=== PATIENT | female | born 1950 | race Hispanic/Latino ===

== ENCOUNTER 2020-01-10 08:35 | Inpatient (IN) | payer MEDICARE, MEDICAID, SELFPAY ==
[2020-01-10] VITALS (12 sets, daily range): BP systolic 103–160; BP diastolic 82–110; PULSE 92–142; RESP 16–20; TEMP 35.7–36.7; O2SAT 93–100; BMI 31.2
--- NOTE | ~2020-01-10 | CT_ITS ---
EXAMINATION: CT brain wo con DATE: 01/10/2020 09:13 INDICATION: Left-sided weakness and numbness TECHNIQUE: Computed tomography (CT) of the head was performed without intravenous contrast. The dose- length product was 605.33 mGy-cm. Automated exposure control and iterative reconstruction technique w ere employed. COMPARISON: None FINDINGS: No acute intracranial hemorrhage, infarction, mass or mass effect. There are calcifications in the basal ganglia, likely from previous infectious or inflammatory etiologies. No ventriculomegal y or midline shift. There is intracranial atherosclerosis. There are scattered mild periventricular a nd subcortical white matter changes, most likely related to small vessel ischemic disease (microangio deshawn). Paranasal sinuses and mastoids are pneumatized. No depressed skull fractures. IMPRESSION: 1. No acute intracranial abnormality. Reviewed, dictated and finalized at location A.
--- NOTE | ~2020-01-10 | US_ITS ---
EXAMINATION: US carotid duplex BI DATE: 01/11/2020 10:53 INDICATION: Left hemiparesis. TECHNIQUE: Grayscale, color Doppler, and pulsed Doppler images of the cervical carotid arteries were obtained. The degree of vessel stenosis is placed in one of the following categories: normal, <50%, 5 0-69%, >=70% but less than near-occlusion, near-occlusion, or total occlusion. Note that percent sten osis relative to normal distal artery lumen diameter is indirectly measured from velocity measurement s as described by Juan, et al. Radiology 2003; 229:340-346. COMPARISON: None. FINDINGS: RIGHT: The right common carotid artery (CCA) peak systolic velocity (PSV) is 63 cm/s. The right internal car otid artery (ICA) PSV is 47 cm/s. The right ICA end-diastolic velocity (EDV) is 20 cm/s. The right IC A/CCA PSV ratio is 0.7. Grayscale and color Doppler images yield an estimate of <50% diameter reducti on from plaque in the ICA. There is antegrade flow in the right vertebral artery. LEFT: The left CCA PSV is 60 cm/s. The left ICA PSV is 42 cm/s. The left ICA EDV is 11 cm/s. The left ICA/C CA PSV ratio is 0.7. Grayscale and color Doppler images yield an estimate of <50% diameter reduction from plaque in the ICA. There is antegrade flow in the left vertebral artery. IMPRESSION: 1. <50% stenosis in the right internal carotid artery. 2. <50% stenosis in the left internal carotid artery. Reviewed, dictated and finalized at location A.
--- NOTE | ~2020-01-10 | XR_ITS ---
XR chest 1V 01/10/2020 09:15 Indication: Chest pain Procedure: AP view of the chest Comparison: No prior studies for comparison. Findings: Cardiomegaly. No focal air space disease, pulmonary edema, pleural effusion or suspected pn eumothorax. No acute osseous abnormality. Impression: 1: No acute cardiopulmonary disease. Reviewed, dictated and finalized at location A. Impression: 1: No acute cardiopulmonary disease.
--- NOTE | ~2020-01-10 | MR_ITS ---
EXAMINATION: MR brain/brain stem wo con EXAM DATE: 01/11/2020 10:41 INDICATION: Left arm hemiparesis. TECHNIQUE: Magnetic resonance imaging (MRI) of the brain/brain stem obtained without contrast. Jagrutiitt al T1, axial diffusion, gradient echo (T2*), T1, T2, FLAIR sequences obtained. Correlation is made t o head CT from yesterday. FINDINGS: There are no areas of restricted diffusion to suggest acute infarction. There is no acute hemorrhage seen on the T2*, a hemosiderin sensitive sequence. No intraparenchymal brain mass lesion. There is mild periventricular and subcortical T2/FLAIR signal hyperintensity, nonspecific but probab ly related to small vessel ischemic disease (microangiopathy). There are no extra-axial collection s. Flow voids are seen in the cerebral arteries on the T2-weighted sequences consistent with their e xpected patency. The orbits are unremarkable. Soft tissue is unremarkable. IMPRESSION: 1. No acute intracranial findings. 2. Mild microangiopathy. Reviewed, dictated and finalized at location B.
--- NOTE | 2020-01-10 08:47 | ED.NEUROSD ---
HPI - Neuro Symptoms/Deficit General Chief Complaint: Extremity Injury, Upper Stated Complaint: arm numbness Time Seen by Provider: 01/10/20 08:38 Source: patient and customer complaint clerk Mode of arrival: ambulatory Limitations: no limitations History of Present Illness HPI Narrative: Pt is a 69 female who presents to the ED with c/o lt arm numbness/pain that started 2 days ago. She notes that her arm feels heavy and cold. She denies CP or SOB. Pt is non-Egyptian speaking and a family member is translating at bedside. Pt was recently seen by retail pharmacist, Dr. Porras and was told she had leaking. She is unaware if she has a H/O AFIB. Pt takes ASA 325mg daily as her anticoagulation therapy. She has a H/o hypothyroidism and HTN. Pt has a holter monitor on in the ED bed. Onset (ago): day(s) (2) Location: left arm Quality: numb and other (pain) On Anticoagulants: Yes (ASA 325mg) Associated symptoms: denies other symptoms Related Data Home Medications Medication Instructions Recorded Confirmed aspirin 325 mg PO DAILY 01/10/20 01/10/20 levothyroxine 50 mcg PO DAILY 01/10/20 01/10/20 metoprolol succinate 50 mg PO DAILY 01/10/20 01/10/20 Allergies Allergy/AdvReac Type Severity Reaction Status Date / Time No Known Allergies Allergy Unverified 01/10/20 08:47 Review of Systems Review of Systems: All systems reviewed & are unremarkable except as noted in HPI and below Cardiovascular: Cardiovascular: Denies chest pain Respiratory: Respiratory: Denies dyspnea Musculoskeletal: Musculoskeletal: Reports other (lt arm pain) Neurologic: Reports numbness (lt arm) FOR[facility]LY [facility] Past Medical History Medical History (Updated 01/10/20 @ 12:52 by Beto Arreola DO) HTN (hypertension) Hypothyroid Surgical History Surgical History (Updated 01/10/20 @ 09:09 by Fili Bustamante) No significant past surgical history Family History Family History (Updated 01/10/20 @ 12:11 by Teresa Raymundo RN) Other Unknown family medical history Social History Social History (Updated 01/10/20 @ 09:09 by Fili Bustamante) Smoking status: Never smoker Second hand tobacco smoke exposure: No Alcohol intake: never Substance use: never Substance use type: does not use Spiritual care concerns: Yes Agree to blood products: Yes Exam Narrative: Exam Narrative: APPEARANCE: No acute distress, nontoxic, resting in bed HEENT: Normocephalic, atraumatic, OMM, TMs clear bilaterally EYES: PERRL, EOMI NECK: Supple, nontender, full range of motion without pain, no meningismus RESPIRATORY: No respiratory distress, clear to auscultation bilaterally with no rhonchi wheezing or rales CARDIOVASCULAR: Tachycardic and irregular s murmur ABDOMINAL: Soft, nontender, nondistended MUSCULOSKELETAL: Moves all extremities. No clubbing, cyanosis or edema. Bilateral radial pulse 2+ NEURO: A and O ?3, following commands, speech normal, cranial nerves II through XII grossly intact,muscle strength 5 out of 5 bilateral upper and lower extremities SKIN:: Warm, dry. Normal Color PSYCHIATRIC: Normal affect/mood Course Course Emergency Course: Discussed with patient and family results of workup and diagnosis. Discussed need for admission. Patient and family understand and agree to current treatment plan Consultations Consultation #1: Discussed case with Wilda Carter NP for the retail pharmacist. Will look through the office notes to see pt's Hx. Date: 01/10/20 Time: 09:41 Consultation #2: Discussed case Dr. Ulloa with the hospitalist. Accepted admission Date: 01/10/20 Time: 09:58 Consultation #3: Wilda Carter reviewed pt's records and the pt is not on any other anticoagulants besides ASA and requests giving pt Lovenox. Date: 01/10/20 Time: 10:15 Vital Signs Vital signs: Vital Signs Temperature 96.2 F L 01/10/20 08:39 Pulse Rate 142 H 01/10/20 08:39 Respiratory Rate 20 01/10/20 08:39 Blood Pressure 160/110 H 01/10/20 08:39 Pulse Oximetry 96 01/10/20 08:39
--- NOTE | 2020-01-10 08:49 | ECG_ITS ---
Measurements Intervals [place] Rate: 160 P: [place]: 0 QRS: 15 QRSD: 77 T: 10 QT: 253 QTc: 414 Interpretive Statements ATRIAL FIBRILLATION WITH RAPID VENTRICULAR RESPONSE BORDERLINE ST ABNORMALITY- ANTEROLATERAL LEADS BASELINE ARTIFACT- I, II, III, AVR, AVL, AVF, V1 ABNORMAL ECG Electronically Signed On 01-10-2020 9:12:28 CDT by Naresh Myers D.O.
[2020-01-10 09:17] LABS: Basophils Percent Auto 0.3 % (0.2-1.2); Eosinophils Absolute Auto 0.2 K/mm3 (0-0.3); Eosinophils Percent Auto 1.9 % (0-4.4); Hematocrit 46.6 % (37.0-47.0); Hemoglobin 15.5 g/dL (12.0-15.0); Immature Granulocyte Absolute 0.02 K/mm3 (0.00-0.031); Immature Granulocyte Percent A 0.2 % (0-0.5); Lymphocytes Absolute Auto 3.63 K/mm3 (0.9-3.2); Lymphocytes Percent Auto 35.7 % (18.3-44.2); Mean Corpuscular HGB Conc 33.3 g/dl (32-36); Mean Corpuscular Hemoglobin 28.9 pg (26-34); Mean Corpuscular Volume 86.9 fl (80-100); Mean Platelet Volume 9.7 fl (7.4-10.4); Monocytes Absolute Auto 0.9 K/mm3 (0.1-0.6); Monocytes Percent Auto 8.5 % (2.6-8.5); Neutrophils Absolute Auto 5.4 K/mm3 (1.3-6.7); Neutrophils Percent Auto 53.4 % (45.5-73.1); Platelet Count Result 206 k/mm3 (150-375); Red Blood Count 5.36 M/mm3 (4.2-5.4); Red Cell Distribution Width 13.7 % (11.5-14.5); White Blood Count 10.2 K/mm3 (4.5-10.0)
[2020-01-10] MEDS: SODIUM CHLORIDE 0.9% IV 1,000 ML 999 ML IV CONT (09:27)
[2020-01-10 09:30] LABS: Alanine Aminotransferase 40 U/L (4-35); Albumin Level 4.1 g/dL (3.5-5.1); Alkaline Phosphatase 112 U/L (38-126); Aspartate Amino Transferase 46 U/L (14-36); Bilirubin,Total 1.1 mg/dL (0.2-1.3); Blood Urea Nitrogen 19 mg/dL (7-17); Calcium 8.6 mg/dL (8.4-10.2); Carbon Dioxide 25 mmol/L (22-30); Chloride 105 mmol/L (98-107); Estimated CRCL calculation 79 ml/min; Estimated Glomerular Filt Rate > 60; Glucose 113 mg/dL (65-105); Magnesium 1.9 mg/dL (1.6-2.3); Sodium 141 mmol/L (137-145)
[2020-01-10 09:35] LABS: Prothrombin Time 13.2 Seconds (11.1-14.7)
[2020-01-10 09:36] LABS: Partial Thromboplastin Time 26.5 SECONDS (22.3-36.8)
[2020-01-10 09:41] LABS: Troponin I < 0.012 ng/mL (0.000-0.034)
[2020-01-10] MEDS: ENOXAPARIN 100 MG/ML SYRINGE 88 MG SUB-Q (10:20)
--- NOTE | 2020-01-10 11:20 | PC.NURSE ---
This patient, Tammy Hunter, was admitted to IMU Room 232-01. Patient/family oriented to hospital policies and general routines including ID bracelet, bed and alarms, visiting hours, pain management, procedures, bathroom and other care routines, personal items, smoking policy, room service/diet, and visiting hours. Valuables list has been completed. Information on how to activate the Rapid Response Team has been discussed. Patient/Family are encouraged to report perceived risks to care and to ask questions if they do not understand what they are told or what they should do.
--- NOTE | 2020-01-10 12:13 | WPDCN ---
Assessment and Plan Assessment and plan (1) Paroxysmal atrial fibrillation: Code(s): I48.0 - Paroxysmal atrial fibrillation Status: Acute Assessment and Plan: Patient has known paroxysmal AFib, but now with persistent AFib RVR. She does not sense any palpitations but does have exertional fatigue, and QUIROZ. CHADS2 Vasc score is 2 (questionable prediabetes so may be higher). Currently just on aspirin a day but I think we should change to an anticoagulant since she may need cardioversion. Add Xarelto 20 mg daily Increase Cardizem drip to 10 milligrams/hour Add an antiarrhythmic such as flecainide 50 mg b.i.d. Follow daily EKGs Possible ISREAL-cardioversion prior to discharge (2) Left arm pain: Code(s): M79.602 - Pain in left arm Status: Acute Assessment and Plan: Most of this sounds like arthritis; can not exclude an ischemic component CT scan was negative (3) Hypothyroid: Code(s): E03.9 - Hypothyroidism, unspecified Status: Acute Assessment and Plan: Taking levothyroxine, TSH was normal this admission HPI Data of Consult Date/Time: 01/10/20 12:13 Requesting Physician: Ruperto Ulloa MD Primary Care Provider: INSPECTOR ASSEMBLY PHYSICIAN Consult Narrative Narrative: Date of service: 01/10/2020 Tammy Hunter is a 69 year old female whom we are asked to see at the request of Dr. Ulloa for advice and opinion regarding her atrial fibrillation with rapid ventricular response. She is followed by Dr. Porras in our office and was seen by him for the 1st time 12/22/2019 for evaluation of PAS. He started her on a engine monitor for 2 weeks to evaluate for silent PAF and, at least at that time, continued her on aspirin. The patient presented this morning to the ER with complaints of arm pain and was found to have AFib RVR, heart rate 160, and was started on a Cardizem drip. As mentioned the patient's chief complaint is left arm heaviness and pain radiating to the 1st 3 fingers of her left hand with some numbness of these fingers. It is intermittent, but is positional. Her arm is tender and sore. She had noticed some increasing shortness of breath with walking and tires quickly with ambulation. She has had increased anxiety recently. She complained of some shortness of breath supine. She has not felt any chest pain, or discomfort and denies any palpitations. She is currently on Cardizem 5 milligrams/hour with a heart rate running around 100-120 at rest but ambulating to the restroom her heart rate went up to 160-180. She has been compliant with her metoprolol succinate 50 mg daily. The patient has a history of pre diabetes but no hypertension or hyperlipidemia. Information was obtained from [facility] EMR, [facility], [id number] and the patient, with the assistance of a key holder. Cardiac testing: November 2019 ECHO: EF 65%, diastolic dysfunction, [id number] MR, moderate AI, [id number]-[id number] TR, RVSP 43 mmHg. 11/2019 Lexiscan: Normal perfusion, EF 60%, SVT in recovery Review of Systems Review of Systems: Narrative: Review of systems was difficult to obtain as the patient cannot speak [place] well and history was obtained through transfer Constitutional: Constitutional: Reports fatigue, Reports lethargy and Reports weakness ENT: Reports Normal hearing present Cardiovascular: Cardiovascular: Denies chest pain, Denies leg edema, Denies lightheadedness and Denies palpitations Respiratory: Respiratory: Reports dyspnea and Reports dyspnea on exertion Gastrointestinal: Gastrointestinal: Reports abdominal pain (Told the nurse she had some lower abdominal pain) Genitourinary: Genitourinary: Reports nocturia Musculoskeletal: Musculoskeletal: Reports arthralgias (Says that legs hurt, left hurts) Integumentary/Breasts: Skin/Breast: Denies rash Neurologic: Denies confusion Psychiatric: Psychiatric: Denies confusion [facility] Past Medical History Medical History (U
[2020-01-10 12:26] LABS: Troponin I < 0.012 ng/mL (0.000-0.034)
--- NOTE | 2020-01-10 13:00 | PM.IMHP ---
H&P: HPI History of Present Illness Chief complaint: Left arm ache and numbness. Narrative: Tammy Hunter is a very pleasant 69-year-old Maur[place]-speaking female who presented to the emergency department earlier this morning for evaluation of left arm ache and numbness. The following history is obtained with the aid of a oxidation operator through [employer], an [employer]. The patient notes having history of tachyarrhythmia, but is uncertain as to whether or not she has a history of atrial fibrillation, but has been taking aspirin 325 milligrams as well as metoprolol succinate 50 milligrams daily for about the last 1 year. Sometime yesterday, she developed an ache in her left upper extremity and felt as though her arm was heavy, with some difficulties moving the arm around. The aching seem to start in the left elbow but did radiate into the left fingers as well. She also noted some numbness in the 1st through 3rd fingers that has been intermittent since that time. Additionally she has had some shortness of breath with exertion and has been increasingly fatigued. Her daughter encouraged her to come in for evaluation today, and on arrival to the emergency department she was found to be in atrial fibrillation with rapid ventricular response. With further questioning, she has felt feelings of a rapid heartbeat radiating into the throat, on occasion with feelings of chest heaviness and shakes. She is currently on a Cardizem drip with improvement in her rate, between 100 and 120 at the time my evaluation. She will become tachycardic into the 160s when ambulate to the restroom, however. At the time my evaluation she has no further complaints. She has not had fever, cold or flu symptoms, exertional chest pain, pleuritic pain, orthopnea, PND, lower extremity edema, nausea, vomiting, and diaphoresis. Review of Systems Review of Systems: Narrative: Twelve systems were reviewed with pertinent positives and negatives as per HPI, except as documented all other systems were reviewed and are negative. [facility] Past Medical History Medical History (Updated 01/10/20 @ 21:12 by Ashanti Dominguez PA-C) Anxiety and depression Arthritis Cataracts, bilateral Gallstones Hypothyroid Paroxysmal atrial fibrillation Surgical History Surgical History (Updated 01/10/20 @ 20:56 by Ashanti Dominguez PA-C) Status post cholecystectomy Status post partial hysterectomy Family History Family History Father Old age of old age, 80s or 90s Mother Old age of old age, age 80s or 90s Other Unknown family medical history Social History Social History (Updated 01/10/20 @ 20:57 by Ashanti Dominguez PA-C) Social History: The patient is . She is originally from [place]. She has 10 children, is currently living with her daughter. She designates her daughter, Lili, as her surrogate decision maker and she wishes to be full code. She is a lifelong nonsmoker and denies alcohol and drug use. Spiritual care concerns: Yes Agree to blood products: Yes Meds Home Medications and Allergies Home Medications Medication Instructions Recorded Confirmed Type aspirin 325 mg PO DAILY 01/10/20 01/10/20 History levothyroxine 50 mcg PO DAILY 01/10/20 01/10/20 History metoprolol succinate 50 mg PO DAILY 01/10/20 01/10/20 History Allergies Allergy/AdvReac Type Severity Reaction Status Date / Time No Known Allergies Allergy Verified 01/10/20 12:56 Vital Signs Vital Signs - 24 hr 01/10/20 08:39 01/10/20 11:06 01/10/20 11:40 Temperature 96.2 F L 96.9 F L Pulse Rate 142 H 122 H 109 H Respiratory Rate 20 20 20 Blood Pressure 160/110 H 125/91 H 132/97 H Pulse Oximetry 96 100 93 01/10/20 12:00 01/10/20 14:00 01/10/20 15:33 Temperature 97.2 F L Pulse Rate 105 H 102 H 94 Respiratory Rate 16 Blood Pressure 137/82 Pulse Oximetry 100 01/10/20 18:00 01/10/20 18:2
--- NOTE | 2020-01-10 13:11 | P.OP_ITS ---
Procedure Note - Detailed Date of procedure: 01/10/20 Pre-op diagnosis: afib with rvr Pacemaker at [facility] Post-op diagnosis: same Procedure performed: conscious sedation generator change Description of procedure: PROCEDURE: Concious sedation Generator change UNDERLYING RHYTHM: atrial fibrillation CONSCIOUS SEDATION: Assessment: The patient has no history of anesthesia problems. The oropharynx is clear. The patient was deemed to be a good candidate for conscious sedation. The patient had continuous hemodynamic and oximetric monitoring during the procedure. Start time: 1242 Completion time: 13 10 Total conscious sedation time: 28 Medications: Versed 1 mg fentanyl 25 mcg IV push Trained observer: Paola Hogan RN Outcome: The patient tolerated the procedure well with no complications. PROCEDURE: After informed consent, the patient is brought to the produce laborer and the left prepectoral area was prepped and draped in usual fashion. The patient was given a prophylactic antibiotic intravenously with Ancef 1 g IV push. After conscious sedation as described above, the area was anesthetized with 1% lidocaine. A skin incision is made with the Plasma Blade and carried down to the pacing capsule which was also incised. Hemostasis is obtained using the Plasma Blade. The lead/s was/were freed from the underlying capsule and the pulse generator was delivered from the pocket. The lead/s was/were disconnected from the existing device and reconnected to the new device. A gentle tug could not remove it/them. The device and lead/s was/were interrogated and found to be functioning appropriately. The area was copiously irrigated with antibiotic- containing solution. The device was placed in a TyRx pouch, and replaced in the pocket. The subcutaneous tissues were closed in a two-layer fashion with interrupted 2 0 Vicryl sutures and the skin was closed in a continuous fashion using 4 0 Vicryl. The area was cleansed, an Aquacel dressing applied. The patient tolerated the procedure well with no complications. Estimated blood loss was negligible. DEVICE INFORMATION: THRESHOLD INFORMATION: PROGRAMMED PARAMETERS: Surgeon: Pinky Gomez MD
[2020-01-10 15:56] LABS: Troponin I < 0.012 ng/mL (0.000-0.034)
[2020-01-10] MEDS: ACETAMINOPHEN 325 MG TABLET 650 MG PO (21:02)
[2020-01-10] MEDS: FLECAINIDE ACETATE 50 MG TABLET PO (21:03)
--- NOTE | 2020-01-10 21:07 | PC.NURSE ---
2100 cardizem drip increased to 10mh/hr. Clarified xarelto dose and start time with Dr. Gomez. Give first dose at 2200 tonight and then start tomorrow at 1700. Also increase cardizem to 10mg/hr and ok to put order in.
[2020-01-10] MEDS: RIVAROXABAN 20 MG TABLET PO (21:56)
[2020-01-11] VITALS (16 sets, daily range): BP systolic 103–133; BP diastolic 60–89; PULSE 61–105; RESP 12–20; TEMP 36.1–36.7; O2SAT 94–100
[2020-01-11 04:46] LABS: Basophils Percent Auto 0.3 % (0.2-1.2); Eosinophils Absolute Auto 0.1 K/mm3 (0-0.3); Eosinophils Percent Auto 1.5 % (0-4.4); Hematocrit 43.1 % (37.0-47.0); Hemoglobin 14.7 g/dL (12.0-15.0); Immature Granulocyte Absolute 0.01 K/mm3 (0.00-0.031); Immature Granulocyte Percent A 0.1 % (0-0.5); Lymphocytes Absolute Auto 2.85 K/mm3 (0.9-3.2); Mean Corpuscular HGB Conc 34.1 g/dl (32-36); Mean Corpuscular Hemoglobin 29.3 pg (26-34); Mean Corpuscular Volume 85.9 fl (80-100); Mean Platelet Volume 9.2 fl (7.4-10.4); Monocytes Absolute Auto 0.8 K/mm3 (0.1-0.6); Monocytes Percent Auto 10.9 % (2.6-8.5); Neutrophils Absolute Auto 3.7 K/mm3 (1.3-6.7); Neutrophils Percent Auto 49.2 % (45.5-73.1); Platelet Count Result 203 k/mm3 (150-375); Red Blood Count 5.02 M/mm3 (4.2-5.4); Red Cell Distribution Width 13.3 % (11.5-14.5); White Blood Count 7.5 K/mm3 (4.5-10.0)
[2020-01-11 05:42] LABS: Alanine Aminotransferase 32 U/L (4-35); Albumin Level 3.8 g/dL (3.5-5.1); Alkaline Phosphatase 95 U/L (38-126); Aspartate Amino Transferase 34 U/L (14-36); Bilirubin,Total 0.9 mg/dL (0.2-1.3); Blood Urea Nitrogen 12 mg/dL (7-17); Calcium 8.7 mg/dL (8.4-10.2); Carbon Dioxide 26 mmol/L (22-30); Chloride 107 mmol/L (98-107); Estimated CRCL calculation 83 ml/min; Estimated Glomerular Filt Rate > 60; Glucose 109 mg/dL (65-105); Potassium 3.9 mmol/L (3.4-5.0); Sodium 138 mmol/L (137-145)
[2020-01-11] MEDS: FLECAINIDE ACETATE 50 MG TABLET PO ×2 (09:18→20:56)
[2020-01-11] MEDS: METOPROLOL SUCCINATE EXT REL 50 MG TABCR PO (09:19)
--- NOTE | 2020-01-11 12:16 | ECG_ITS ---
Measurements Intervals [place] Rate: 85 P: [place]: 0 QRS: 17 QRSD: 86 T: 6 QT: 363 QTc: 434 Interpretive Statements ATRIAL FIBRILLATION BASELINE ARTIFACT- III, AVL, AVF ABNORMAL ECG Electronically Signed On 01-11-2020 13:29:22 CDT by Naresh Myers D.O.
--- NOTE | 2020-01-11 12:51 | PM.PNCARD ---
Progress Note: A&P Assessment and Plan (1) Paroxysmal atrial fibrillation: Code(s): I48.0 - Paroxysmal atrial fibrillation Status: Acute Assessment and Plan: Patient has known paroxysmal AFib, but now with persistent AFib RVR. Rate is now better controlled. Continue flecainide and Metoprolol. Cardizem was discontinued. Had some pauses overnight but did not convert to sinus rhythm. Did not complain of shortness of breath today. CHADS2 Vasc score is 2 (questionable prediabetes so may be higher). Started on Xarelto 20 mg daily 01/10/2020. Will have case management make sure that she can afford it. Continue flecainide at 50 mg b.i.d.. Daily EKG. Will schedule for ISREAL cardioversion for tomorrow if she does not convert overnight. NPO after midnight except for sips with medication. Will go over the procedure when her family is available. (2) Left arm pain: Code(s): M79.602 - Pain in left arm Status: Acute Assessment and Plan: Most of this sounds like arthritis; can not exclude an ischemic component Lexiscan in November was normal. CT scan was negative Discomfort is better but still feels ?tired?. (3) Hypothyroid: Code(s): E03.9 - Hypothyroidism, unspecified Status: Acute Assessment and Plan: Taking levothyroxine, TSH was normal this admission Additional Plan Plan discussed with Dr Gomez 1255 01/11/2020 Subjective Date/time seen: 01/11/20 12:51 Interval history: Follow-up for: Paroxysmal atrial fibrillation, left arm pain and hypothyroidism Date of service: 01/11/2020 Subjective: Denied chest discomfort or shortness of breath. Left arm ?tired?. Having some discomfort in the left hip region otherwise feels ?normal?. Review of Systems Constitutional: Constitutional: Denies fatigue and Denies weakness Eyes: Eyes: Denies blurry vision ENT: Reports Normal hearing present Cardiovascular: Cardiovascular: Denies chest pain, Denies irregular heart rhythm, Denies leg edema, Denies lightheadedness, Denies palpitations, Denies dyspnea and Denies dyspnea on exertion Respiratory: Respiratory: Denies dyspnea and Denies dyspnea on exertion Gastrointestinal: Gastrointestinal: Reports abdominal pain (Told the nurse she had some lower abdominal pain) Genitourinary: Genitourinary: Denies hematuria and Reports nocturia Musculoskeletal: Musculoskeletal: Denies arthralgias Integumentary/Breasts: Skin/Breast: Denies rash Neurologic: Reports Normal hearing present, Denies confusion and Reports weakness Psychiatric: Psychiatric: Denies confusion Endocrine: Endocrine: Reports fatigue and Denies palpitations Hematologic/Lymphatic: Hematologic/Lymphatic: Denies easy bleeding and Denies easy bruising Allergic/Immunologic: Allergic/Immunologic: Denies urticaria Exam Narrative: Exam Narrative: Laying in bed. Denied discomfort. Const: General: comfortable and no acute distress HENMT: Mouth: Yes moist mucous membranes Eyes: EOM: EOMs intact bilaterally Neck: Neck: supple and No no JVD Resp: Effort & Inspection: normal respiratory effort Auscultation: clear to auscultation bilaterally Cardio: Rate: regular rate Rhythm: abnormal rhythm irregularly irregular Heart sounds: no murmurs Peripheral pulses: Peripheral pulses 2+ throughout GI: Inspection: non-distended GI Palp: Yes abdominal tenderness (Left lower quadrant) Auscultation: normal bowel sounds Skin: General skin exam: normal color and no rashes or lesions noted Neuro: General: moves all extremities Cranial nerves: Yes Normal hearing present Speech: normal speech Extrem: Right upper extremity: normal to inspection; no edema Left upper extremity: normal to inspection (Appears to have generalized tenderness and some discomfort with movement ) and hand (Fingers warm, intact radial pulse); no edema Right lower extremity
[2020-01-11] MEDS: ACETAMINOPHEN 325 MG TABLET 650 MG PO (13:02)
[2020-01-11] MEDS: RIVAROXABAN 20 MG TABLET PO (17:02)
--- NOTE | 2020-01-11 17:04 | PM.IMPN ---
Progress Note: A&P Assessment and Plan (1) Atrial fibrillation with rapid ventricular response: Code(s): I48.91 - Unspecified atrial fibrillation Status: Acute Assessment and Plan: Currently off Cardizem drip and rate is controlled with the metoprolol and the flecainide. Chads Vasc score is 2 (maybe higher than that, as there is some concern that she may have pre diabetes). Dr. Gomez has seen the patient evaluation, and recommend starting Xarelto which was done (2) Left arm pain: Code(s): M79.602 - Pain in left arm Status: Acute Assessment and Plan: Differential diagnosis includes nerve compression, TIA, and possible ischemia, though felt to be less likely with recent negative stress test CT scan was negative. MRI of the brain no acute changes. (3) Hypothyroid: Code(s): E03.9 - Hypothyroidism, unspecified Status: Acute Assessment and Plan: Continue levothyroxine. TSH today was within normal limits. (4) Elevated LFTs: Code(s): R94.5 - Abnormal results of liver function studies Status: Acute Assessment and Plan: Mild elevation of both AST and ALT which on repeat are all normal. For now we will just continue to monitor. Subjective Date/time seen: 01/11/20 17:04 Interval history: Date of visit 01/10. 69-year-old female with with paroxysmal atrial fibrillation admitted with shortness of breath weakness and found to have persistent AFib RVR. Did have some paresthesias in her left arm which has resolved. Was on a diltiazem drip overnight to control rate and now beta-carolyn in addition to flecainide are controlling rate Exam Narrative: Exam Narrative: Blood pressure 104/60 pulse is 70 to 90 irregular afebrile Pupil equal reactive to light sclera anicteric Lungs clear CV irregular no murmurs Abdomen is soft nontender no masses Extremities without edema distal pulses are 2+ Neuro alert pleasant cooperative no focal deficit Objective Data Vital Signs Vital Signs: Vital Signs - 24 hr 01/10/20 18:00 01/10/20 18:29 01/10/20 20:00 Temperature 36.7 C Pulse Rate 105 H 104 H Respiratory Rate 20 Blood Pressure 146/83 H Pulse Oximetry 100 97 01/10/20 21:03 01/10/20 21:52 01/10/20 23:51 Temperature 36.5 C Pulse Rate 101 H 104 H 95 Respiratory Rate 18 Blood Pressure 103/87 Pulse Oximetry 98 01/11/20 00:00 01/11/20 02:00 01/11/20 04:00 Temperature 36.7 C Pulse Rate 89 72 72 Respiratory Rate 20 Blood Pressure 120/79 Pulse Oximetry 94 01/11/20 05:41 01/11/20 08:00 01/11/20 09:15 Temperature 36.1 C L Pulse Rate 84 94 96 Respiratory Rate 20 Blood Pressure 133/89 Pulse Oximetry 100 99 01/11/20 09:18 01/11/20 09:19 01/11/20 10:00 Temperature Pulse Rate 103 H 103 H 100 Respiratory Rate Blood Pressure Pulse Oximetry 01/11/20 12:00 01/11/20 13:18 01/11/20 14:00 Temperature 36.4 C Pulse Rate 75 74 100 Respiratory Rate 18 Blood Pressure 103/60 Pulse Oximetry 100 100 Intake/Output Intake/Output: Intake & Output 01/08/20 01/09/20 01/10/20 01/11/20 23:59 23:59 23:59 23:59 Intake Total 1245 2020 Balance 1245 2020 Meds/Results Medications: Active Medications Generic Name Dose Route Start Last Admin Trade Name Freq PRN Reason Stop Dose Admin Acetaminophen 650 mg 01/10/20 18:02 01/11/20 13:02 Tylenol Tablet PO 650 mg Q4H PRN Administration Headache Flecainide Acetate 50 mg 01/10/20 21:00 01/11/20 09:18 Tambocor PO 50 mg Q12HR LUCINDA Administration Sodium Chloride 1,000 mls @ 30 mls/hr 01/12/20 09:00 Normal Saline Iv IV CONT .Q24H LUCINDA Levothyroxine Sodium 50 mcg 01/12/20 06:30 Synthroid PO DAILY@0630 LUCINDA Metoprolol Succinate 50 mg 01/11/20 09:00 01/11/20 09:19 Toprol Xl PO 50 mg QAM LUCINDA Administration Rivaroxaban 20 mg 01/11/20 17:00 01/11/20 17:02
[2020-01-12] VITALS (27 sets, daily range): BP systolic 100–145; BP diastolic 77–115; PULSE 72–146; RESP 13–20; TEMP 36.1–36.9; O2SAT 92–100
[2020-01-12 05:31] LABS: Blood Urea Nitrogen 12 mg/dL (7-17); Calcium 8.9 mg/dL (8.4-10.2); Carbon Dioxide 30 mmol/L (22-30); Chloride 102 mmol/L (98-107); Estimated CRCL calculation 73 ml/min; Estimated Glomerular Filt Rate > 60; Glucose 119 mg/dL (65-105); Magnesium 1.9 mg/dL (1.6-2.3); Potassium 4.4 mmol/L (3.4-5.0); Sodium 141 mmol/L (137-145)
[2020-01-12] MEDS: LEVOTHYROXINE SODIUM 50 MCG TABLET PO (06:51)
--- NOTE | 2020-01-12 07:40 | PC.NURSE ---
RN UPDATED PATIENT'S DAUGHTER SHARON LOZANO ON PATIENT'S PROCEDURE SCHEDULED THIS MORNING, PER PATIENT REQUEST.
--- NOTE | 2020-01-12 08:53 | WPDMODSED ---
Moderate Sedation Note-Pt Data Patient Data Diagnosis: Symptomatic atrial fibrillation, persistent Present Complaint: Persistent atrial fibrillation Procedure to be performed/Plan: Conscious sedation Transesophageal echo Cardioversion Allergies Allergy/AdvReac Type Severity Reaction Status Date / Time No Known Allergies Allergy Verified 01/10/20 12:56 Home Medications Medication Instructions Recorded Confirmed Type aspirin 325 mg PO DAILY 01/10/20 01/10/20 History levothyroxine 50 mcg PO DAILY 01/10/20 01/10/20 History metoprolol succinate 50 mg PO DAILY 01/10/20 01/10/20 History Current Medications: Active Medications Acetaminophen (Tylenol Tablet) 650 mg PO Q4H PRN PRN Reason: Headache Last Admin: 01/11/20 13:02 Dose: 650 mg Documented by: Flecainide Acetate (Tambocor) 50 mg PO Q12HR [facility] Last Admin: 01/11/20 20:56 Dose: 50 mg Documented by: Sodium Chloride (Normal Saline Iv) 1,000 mls @ 30 mls/hr IV CONT .Q24H LUCINDA Sodium Chloride (Normal Saline Iv) 1,000 mls @ 30 mls/hr IV CONT .Q24H [facility] Levothyroxine Sodium (Synthroid) 50 mcg PO DAILY@0630 [facility] Last Admin: 01/12/20 06:51 Dose: 50 mcg Documented by: Metoprolol Succinate (Toprol Xl) 50 mg PO QAM [facility] Last Admin: 01/11/20 09:19 Dose: 50 mg Documented by: Rivaroxaban (Xarelto) 20 mg PO DAILY@1700 [facility] Last Admin: 01/11/20 17:02 Dose: 20 mg Documented by: Sedation/Anesthesia: No previous sedation/anesthesia problems (including family history). [facility] Past Medical History Medical History Anxiety and depression Arthritis Cataracts, bilateral Gallstones Hypothyroid Paroxysmal atrial fibrillation Surgical History Surgical History Status post cholecystectomy Status post partial hysterectomy Family History Family History Father Old age of old age, 80s or 90s Mother Old age of old age, age 80s or 90s Other Unknown family medical history Social History Social History (Updated 01/10/20 @ 20:57 by Ashanti Dominguez PA-C) Social History: The patient is . She is originally from [place]. She has 10 children, is currently living with her daughter. She designates her daughter, Lili, as her surrogate decision maker and she wishes to be full code. She is a lifelong nonsmoker and denies alcohol and drug use. Spiritual care concerns: Yes Agree to blood products: Yes Mod Sed Physical Exam Physical Exam Pre Procedural Exam: Normal: Appearance (Pleasant female NAD), Eyes, Ears, Nose, Neck, Throat, Airway, Lungs, Heart Size, Heart Rate, Neuro Exam, Abdomen, Kidneys, Extremities and Skin and Variation: Heart Rhythm Hours since solid foods: 12 Hours since liquid intake: 12 Internal Medicine - PN: Obj Da Vital Signs Vital Signs: Vital Signs - 24 hr 01/11/20 09:15 01/11/20 09:18 01/11/20 09:19 Temperature 96.9 F L Pulse Rate 96 103 H 103 H Respiratory Rate 20 Blood Pressure 133/89 Pulse Oximetry 99 01/11/20 10:00 01/11/20 12:00 01/11/20 13:18 Temperature 97.6 F Pulse Rate 100 75 74 Respiratory Rate 18 Blood Pressure 103/60 Pulse Oximetry 100 100 01/11/20 14:00 01/11/20 16:00 01/11/20 20:00 Temperature 97.5 F L 97.3 F L Pulse Rate 100 61 102 H Respiratory Rate 12 18 Blood Pressure 125/80 108/60 Pulse Oximetry 98 96 01/11/20 20:56 01/11/20 22:00 01/12/20 00:00 Temperature Pulse Rate 97 96 102 H Respiratory Rate Blood Pressure Pulse Oximetry 01/12/20 00:16 01/12/20 02:00 01/12/20 03:57 Temperature 98.0 F 96.9 F L Pulse Rate 72 104 H 110 H Respiratory Rate 18 20 Blood Pressure 110/77 133/84 Pulse Oximetry 94 100 01/12/20 04:00 01/12/20 06:00 01/12/20 07:57 Temperature Pulse Rate 105 H 105 H Respiratory Rate Blood Pressure Pulse Oxime
--- NOTE | 2020-01-12 10:53 | P.PCNTEE_ITS ---
ISREAL TransEsophageal Echocardiogram Date of procedure: 01/14/20 Procedure Type: ISREAL Diagnosis: A fib, persistent Planning ISREAL-guided Cardioversion Indications: Symptomatic atrial fibrillation, RVR Image Quality: Good Findings: Conscious sedation: Assessment: The patient has no history of anesthesia problems. The patient's oropharynx is clear. The patient was deemed to be a good candidate for conscious sedation. The patient had continuous hemodynamic and oximetric monitoring during the procedure. Start time: 1037 Completion time: 1053 Total conscious sedation time: 16 minutes Medications Used: Versed 2 mg, fentanyl 50 mcg IV push Trained observer: Lady Chauhan RN Outcome: The patient tolerated the procedure well with no complications. Procedure: After informed consent the patient had Hurricaine spray the hypopharynx. The patient had conscious sedation as described above. The transesophageal echo probe was introduced in the esophagus without difficulty. Imaging was obtained in multiplane views. Agitated saline was injected to evaluate for intracardiac shunting. The patient tolerated the procedure well with no complications. Findings: The left atrium was severely enlarged. Spontaneous contrast is noted in the left atrium there is is a small mobile thrombus present in the left atrial appendage. The atrial septum appeared intact. Mitral valve appeared normal, with no stenosis or prolapse. The left ventricle had had normal size and mild hypertrophy with severe global left ventricular dysfunction. The ejection fraction is estimated to be: 20-25%. The aortic root and valve were normal. The ascending aorta, aortic arch and descending thoracic aorta showed minimal plaquing, but there was spontaneous contrast present as well. The right atrium is moderately dilated. The, tricuspid valve, right ventricle, pulmonic valve and pulmonic artery were all normal. There is no pericardial effusion. When agitated saline was injected intravenously there was evidence of intracardiac shunting with a very small amount of shunt with cough.. Pulse, continuous and colorflow Doppler Findings: Moderate mitral and tricuspid regurgitation. The tricuspid regurgitant jet velocity was about 2.4 m/sec. Moderate aortic insufficiency. . Conclusions: Thrombus present in the left atrial appendage with spontaneous contrast present in the left atrium as well. Severe global left ventricular dysfunction, EF 20-25% Mild concentric left ventricular hypertrophy Moderate mitral regurgitation Moderate tricuspid regurgitation Moderate aortic insufficiency Spontaneous contrast noted in the aorta Minimal [id number] shunt noted during cough consistent with a tiny PFO Recommendation: The patient's left ventricular function is declined significantly since the echo in November which showed EF of 60%. Probably related to the persistent AFib RVR. Cardioversion was canceled Will discontinue flecainide Concentrate on rate control; incr metop to 100 mg qd. Watch for bradycardia. Add lisinopril 5 mg qd. Patient does not have medication insurance coverage so will switch this Xarelto to warfarin Patient will need close outpatient follow-up; she was planning on returning to [place] in the next few days but I have discouraged that. Spoke with daughter.
[2020-01-12] MEDS: lisinopriL 5 MG TABLET PO (14:32)
[2020-01-12] MEDS: METOPROLOL TARTRATE 25 MG TABLET PO (15:30)
--- NOTE | 2020-01-12 16:14 | PM.IMPN ---
Progress Note: A&P Assessment and Plan (1) Atrial fibrillation with rapid ventricular response: Code(s): I48.91 - Unspecified atrial fibrillation Status: Acute Assessment and Plan: rate is controlled with the metoprolol and the flecainide. Chads Vasc score is 2 (maybe higher than that, as there is some concern that she may have pre diabetes). Dr. Gomez has seen the patient evaluation, and recommend starting Xarelto which was done ISREAL cardioversion scheduled for today (2) Left arm pain: Code(s): M79.602 - Pain in left arm Status: Acute Assessment and Plan: CT scan was negative. MRI of the brain no acute changes. probable related to RVR (3) Hypothyroid: Code(s): E03.9 - Hypothyroidism, unspecified Status: Acute Assessment and Plan: Continue levothyroxine. TSH today was within normal limits. (4) Elevated LFTs: Code(s): R94.5 - Abnormal results of liver function studies Status: Acute Assessment and Plan: Mild elevation of both AST and ALT which on repeat are all normal. For now we will just continue to monitor. Subjective Date/time seen: 01/12/20 16:14 Interval history: Date of visit 01/11. 69-year-old female with with paroxysmal atrial fibrillation admitted with shortness of breath weakness and found to have persistent AFib RVR. Did have some paresthesias in her left arm which has resolved. Was on a diltiazem drip initially to control rate and now beta-carolyn in addition to flecainide are controlling rate Scheduled for TTE cardioversion today Exam Narrative: Exam Narrative: Blood pressure 110/70 pulse is 70 to 90 irregular afebrile Pupil equal reactive to light sclera anicteric Lungs clear CV irregular no murmurs Abdomen is soft nontender no masses Extremities without edema distal pulses are 2+ Neuro alert pleasant cooperative no focal deficit Objective Data Vital Signs Vital Signs: Vital Signs - 24 hr 01/11/20 20:00 01/11/20 20:56 01/11/20 22:00 Temperature 36.3 C L Pulse Rate 102 H 97 96 Respiratory Rate 18 Blood Pressure 108/60 Pulse Oximetry 96 01/12/20 00:00 01/12/20 00:16 01/12/20 02:00 Temperature 36.7 C Pulse Rate 102 H 72 104 H Respiratory Rate 18 Blood Pressure 110/77 Pulse Oximetry 94 01/12/20 03:57 01/12/20 04:00 01/12/20 06:00 Temperature 36.1 C L Pulse Rate 110 H 105 H 105 H Respiratory Rate 20 Blood Pressure 133/84 Pulse Oximetry 100 01/12/20 07:57 01/12/20 08:00 01/12/20 10:00 Temperature Pulse Rate 121 H 105 H Respiratory Rate Blood Pressure Pulse Oximetry 100 01/12/20 10:15 01/12/20 10:30 01/12/20 10:40 Temperature Pulse Rate 133 H 126 H 121 H Respiratory Rate 18 19 18 Blood Pressure 132/101 H 111/92 H 130/95 H Pulse Oximetry 100 97 96 01/12/20 10:45 01/12/20 10:50 01/12/20 11:05 Temperature 36.6 C Pulse Rate 129 H 128 H 125 H Respiratory Rate 14 17 15 Blood Pressure 135/115 H 145/96 H 126/96 H Pulse Oximetry 99 100 92 01/12/20 11:20 01/12/20 11:35 01/12/20 11:50 Temperature Pulse Rate 121 H 118 H 130 H Respiratory Rate 13 15 15 Blood Pressure 117/87 127/97 H 120/96 H Pulse Oximetry 95 97 95 01/12/20 12:00 01/12/20 14:00 01/12/20 15:30 Temperature Pulse Rate 117 H 142 H 146 H Respiratory Rate Blood Pressure Pulse Oximetry 95 Intake/Output Intake/Output: Intake & Output 01/09/20 01/10/20 01/11/20 01/12/20 23:59 23:59 23:59 23:59 Intake Total 1245 2260 200 Balance 1245 2260 200 Meds/Results Medications: Active Medications Generic Name Dose Route Start Last Admin Trade Name Freq PRN Reason Stop Dose Admin Acetaminophen 650 mg 01/10/20 18:02 01/11/20 13:02 Tylenol Tablet PO 650 mg Q4H PRN Administration Headache Sodium Chloride 1,000 mls @ 30 mls/hr 01/12/20 09:00 Normal Saline Iv IV CONT .Q24H LUCINDA Sodium Chlor
[2020-01-12] MEDS: WARFARIN (*PBKC) 5 MG TABLET PO (17:13)
[2020-01-12] MEDS: RIVAROXABAN 20 MG TABLET PO (17:14)
[2020-01-12] MEDS: METOPROLOL TARTRATE 50 MG TAB PO (18:45)
[2020-01-12] MEDS: ACETAMINOPHEN 325 MG TABLET 650 MG PO (20:40)
[2020-01-13] VITALS (15 sets, daily range): BP systolic 104–126; BP diastolic 70–99; PULSE 66–138; RESP 13–20; TEMP 35.7–36.6; O2SAT 95–98
[2020-01-13 05:23] LABS: INR 1.8
[2020-01-13] MEDS: LEVOTHYROXINE SODIUM 50 MCG TABLET PO (06:49)
[2020-01-13] MEDS: METOPROLOL SUCCINATE EXT REL 100 MG TABCR PO (08:20)
[2020-01-13] MEDS: lisinopriL 5 MG TABLET PO (08:20)
--- NOTE | 2020-01-13 11:13 | PM.PNCARD ---
Progress Note: A&P Assessment and Plan (1) Paroxysmal atrial fibrillation: Code(s): I48.0 - Paroxysmal atrial fibrillation Status: Acute Assessment and Plan: Known paroxysmal AFib, but now with persistent AFib RVR. Thrombus present in the left atrial appendage on ISREAL 01/12/2020. Flecainide discontinued. Metoprolol succinate increased 100 mg daily. First dose this morning. Warfarin started as she does not have medication coverage. Will continue Xarelto at least while she is in the hospital. Daily INR. Plan discussed again with her daughter. She and her mother are both aware of the recommendations for close monitoring while her warfarin is being adjusted. She had plan to return to [place]. (2) Left arm pain: Code(s): M79.602 - Pain in left arm Status: Acute Assessment and Plan: Most of this sounds like arthritis; can not exclude an ischemic component Lexiscan in November was normal. CT scan was negative (3) Hypothyroid: Code(s): E03.9 - Hypothyroidism, unspecified Status: Acute Assessment and Plan: Taking levothyroxine, TSH was normal this admission (4) Systolic dysfunction: Code(s): I51.9 - Heart disease, unspecified Status: Acute Assessment and Plan: Severe global left ventricular dysfunction noted on ISREAL. EF 20-25%. November echocardiogram EF was 60%. Most likely this is due to her atrial fibrillation. Continue lisinopril 5 mg daily as blood pressure tolerates. Continue Metoprolol succinate 100 mg daily. Additional Plan Can transfer to [facility]. Would prefer vital signs continue to be done every 4 hours to continue to carefully monitor her blood pressure response to her medications as well as her heart rate. Encouraged ambulation. Plan discussed with Dr. Ayers 1122 01/13/2020 Subjective Date/time seen: 01/13/20 11:13 Interval history: Follow-up for: Paroxysmal atrial fibrillation, left arm pain and hypothyroidism, left atrial appendage thrombus on ISREAL 01/12/2020 Date of service: 01/13/2020 Subjective: Sitting on side of bed. Family at bedside. Denied chest discomfort, shortness of breath, lightheadedness or palpitations. Still has some discomfort in the left side. Tender on palpation. Review of Systems Constitutional: Constitutional: Reports fatigue and Reports weakness Eyes: Eyes: Denies blurry vision ENT: Reports Normal hearing present Cardiovascular: Cardiovascular: Denies chest pain, Denies irregular heart rhythm, Denies leg edema, Denies lightheadedness, Denies palpitations, Denies dyspnea and Denies dyspnea on exertion Respiratory: Respiratory: Denies dyspnea and Denies dyspnea on exertion Gastrointestinal: Gastrointestinal: Reports abdominal pain (Left lower ) Genitourinary: Genitourinary: Denies hematuria and Reports nocturia Musculoskeletal: Musculoskeletal: Denies arthralgias Integumentary/Breasts: Skin/Breast: Denies rash Neurologic: Reports Normal hearing present, Denies confusion and Reports weakness Psychiatric: Psychiatric: Denies confusion Endocrine: Endocrine: Reports fatigue and Denies palpitations Hematologic/Lymphatic: Hematologic/Lymphatic: Denies easy bleeding and Denies easy bruising Allergic/Immunologic: Allergic/Immunologic: Denies urticaria Exam Narrative: Exam Narrative: Sitting on side of bed. Talking with family. Const: General: cooperative, comfortable and no acute distress Nutritional Appearance: obese Orientation/consciousness: patient oriented x3 HENMT: Head: normal to inspection and atraumatic Ears: hearing grossly normal bilaterally Mouth: Yes moist mucous membranes Eyes: EOM: EOMs intact bilaterally Neck: Neck: supple and No no JVD Resp: Effort & Inspection: normal respiratory effort Auscultation: clear to auscultation bilaterally Cardio: Rate: regular rate Rhythm: abnormal rhythm i
--- NOTE | 2020-01-13 11:58 | PM.IMPN ---
Progress Note: A&P Assessment and Plan (1) Atrial fibrillation with rapid ventricular response: Code(s): I48.91 - Unspecified atrial fibrillation Status: Acute Assessment and Plan: rate is controlled with the metoprolol , flecainide d/soledad with thrombus and low EF Chads Vasc score is 2 (maybe higher than that, as there is some concern that she may have pre diabetes). Dr. Gomez has seen the patient evaluation, and recommend started xarelto and now transitioning to warfarin with thrombus and fact insurance does not cover possible cardiovert 4-6 weeks after anticoagulation (2) Left arm pain: Code(s): M79.602 - Pain in left arm Status: Acute Assessment and Plan: CT scan was negative. MRI of the brain no acute changes. probable related to RVR (3) Hypothyroid: Code(s): E03.9 - Hypothyroidism, unspecified Status: Acute Assessment and Plan: Continue levothyroxine. TSH today was within normal limits. (4) Elevated LFTs: Code(s): R94.5 - Abnormal results of liver function studies Status: Acute Assessment and Plan: Mild elevation of both AST and ALT which on repeat are all normal. For now we will just continue to monitor. (5) Atrial thrombus: Code(s): I51.3 - Intracardiac thrombosis, not elsewhere classified Status: Acute Assessment and Plan: as above warfarin started d# 2 (6) Cardiomyopathy: Code(s): I42.9 - Cardiomyopathy, unspecified Status: Acute Assessment and Plan: EF 25-30% thought rate induced. continure beta carolyn and low dose tami added Subjective Date/time seen: 01/13/20 11:58 Interval history: Date of visit 01/12. 69-year-old female with with paroxysmal atrial fibrillation admitted with shortness of breath weakness and found to have persistent AFib RVR. Did have some paresthesias in her left arm which has resolved. Was on a diltiazem drip initially to control rate and now beta-carolyn TTE 01/11 atrial thrombus so no cardioversion and flecainide d/soledad Exam Narrative: Exam Narrative: Blood pressure 106/70 pulse 90 irregular afebrile Pupil equal reactive to light sclera anicteric Lungs clear CV irregular no murmurs Abdomen is soft nontender no masses Extremities without edema distal pulses are 2+ Neuro alert pleasant cooperative no focal deficit Objective Data Vital Signs Vital Signs: Vital Signs - 24 hr 01/12/20 12:00 01/12/20 14:00 01/12/20 15:30 Temperature Pulse Rate 117 H 142 H 146 H Respiratory Rate Blood Pressure Pulse Oximetry 95 01/12/20 16:00 01/12/20 18:00 01/12/20 18:45 Temperature Pulse Rate 115 H 115 H 110 H Respiratory Rate Blood Pressure Pulse Oximetry 95 01/12/20 20:00 01/12/20 20:36 01/12/20 22:00 Temperature 36.9 C Pulse Rate 106 H 112 H 95 Respiratory Rate 18 Blood Pressure 100/78 Pulse Oximetry 96 96 01/13/20 00:00 01/13/20 00:05 01/13/20 02:00 Temperature 35.9 C L Pulse Rate 112 H 75 79 Respiratory Rate 20 Blood Pressure 125/70 Pulse Oximetry 96 96 01/13/20 04:00 01/13/20 04:05 01/13/20 06:00 Temperature 36.4 C L Pulse Rate 94 79 76 Respiratory Rate 18 Blood Pressure 111/77 Pulse Oximetry 98 01/13/20 08:00 01/13/20 08:20 01/13/20 10:00 Temperature 36.5 C Pulse Rate 99 115 H 95 Respiratory Rate 18 Blood Pressure 104/75 Pulse Oximetry 95 Intake/Output Intake/Output: Intake & Output 01/10/20 01/11/20 01/12/20 01/13/20 23:59 23:59 23:59 23:59 Intake Total 1245 2300 1000 540 Balance 1245 2300 1000 540 Meds/Results Medications: Active Medications Generic Name Dose Route Start Last Admin Trade Name Freq PRN Reason Stop Dose Admin Acetaminophen 650 mg 01/10/20 18:02 01/12/20 20:40 Tylenol Tablet PO 650 mg Q4H PRN Administration Headache Levothyroxine Sodium 50 mcg 01/12/20 06:30 01/13/20 06:49
[2020-01-13] MEDS: RIVAROXABAN 20 MG TABLET PO (17:12)
[2020-01-13] MEDS: WARFARIN (*PBKC) 5 MG TABLET PO (17:12)
--- NOTE | 2020-01-13 17:32 | PC.NURSE ---
This patient, Tammy Hernandez Dale, was received from [facility] 232/01 on 01/13/20 at 1732. Personal belongings list checked and signed. Patient/family oriented to unit policies and routines
--- NOTE | 2020-01-13 17:43 | PC.NURSE ---
This patient, Tammy Osei, was transferred to [facility] on 01/13/20 at 1731. Personal belongings sent with patient. Belongings list checked and signed with receiving [ ]. Report given to GLENN Ace. Appropriate documentation sent with patient.
[2020-01-13] MEDS: DIGOXIN 250 MCG TABLET 500 MCG PO (19:15)
[2020-01-13] MEDS: METOPROLOL TARTRATE INJ 5 MG/5 ML VIAL IV PUSH (22:26)
[2020-01-13] MEDS: METOPROLOL TARTRATE 25 MG TABLET PO (22:26)
[2020-01-14] VITALS (9 sets, daily range): BP systolic 92–108; BP diastolic 55–73; PULSE 73–107; RESP 18–20; TEMP 36.6; O2SAT 96–100
[2020-01-14 05:44] LABS: Basophils Percent Auto 0.2 % (0.2-1.2); Eosinophils Absolute Auto 0.2 K/mm3 (0-0.3); Eosinophils Percent Auto 2.6 % (0-4.4); Hematocrit 45.9 % (37.0-47.0); Hemoglobin 15.1 g/dL (12.0-15.0); Immature Granulocyte Absolute 0.03 K/mm3 (0.00-0.031); Immature Granulocyte Percent A 0.4 % (0-0.5); Lymphocytes Absolute Auto 3.04 K/mm3 (0.9-3.2); Lymphocytes Percent Auto 36.5 % (18.3-44.2); Mean Corpuscular HGB Conc 32.9 g/dl (32-36); Mean Corpuscular Hemoglobin 28.4 pg (26-34); Mean Corpuscular Volume 86.4 fl (80-100); Mean Platelet Volume 9.4 fl (7.4-10.4); Monocytes Absolute Auto 0.9 K/mm3 (0.1-0.6); Monocytes Percent Auto 10.8 % (2.6-8.5); Neutrophils Absolute Auto 4.1 K/mm3 (1.3-6.7); Neutrophils Percent Auto 49.5 % (45.5-73.1); Platelet Count Result 225 k/mm3 (150-375); Red Blood Count 5.31 M/mm3 (4.2-5.4); Red Cell Distribution Width 13.3 % (11.5-14.5); White Blood Count 8.3 K/mm3 (4.5-10.0)
[2020-01-14] MEDS: LEVOTHYROXINE SODIUM 50 MCG TABLET PO (06:17)
[2020-01-14] MEDS: lisinopriL 5 MG TABLET PO (08:20)
[2020-01-14] MEDS: METOPROLOL SUCCINATE EXT REL 100 MG TABCR PO (08:20)
[2020-01-14] MEDS: DIGOXIN 250 MCG TABLET PO (08:21)
[2020-01-14 09:13] LABS: Blood Urea Nitrogen 24 mg/dL (7-17); Calcium 8.5 mg/dL (8.4-10.2); Carbon Dioxide 25 mmol/L (22-30); Chloride 104 mmol/L (98-107); Estimated CRCL calculation 84 ml/min; Estimated Glomerular Filt Rate > 60; Glucose 118 mg/dL (65-105); Potassium 4.4 mmol/L (3.4-5.0); Sodium 137 mmol/L (137-145)
--- NOTE | 2020-01-14 10:21 | PM.IMPN ---
Progress Note: A&P Assessment and Plan (1) Atrial fibrillation with rapid ventricular response: Code(s): I48.91 - Unspecified atrial fibrillation Status: Acute Assessment and Plan: rate is controlled with the metoprolol , flecainide d/soledad with thrombus and low EF Chads Vasc score is 2 (maybe higher than that, as there is some concern that she may have pre diabetes). Dr. Gomez has seen the patient evaluation, and recommend started xarelto and now transitioning to warfarin with thrombus and fact insurance does not cover possible cardiovert 4-6 weeks after anticoagulation (2) Left arm pain: Code(s): M79.602 - Pain in left arm Status: Acute Assessment and Plan: CT scan was negative. MRI of the brain no acute changes. probable related to RVR (3) Hypothyroid: Code(s): E03.9 - Hypothyroidism, unspecified Status: Acute Assessment and Plan: Continue levothyroxine. TSH today was within normal limits. (4) Elevated LFTs: Code(s): R94.5 - Abnormal results of liver function studies Status: Acute Assessment and Plan: Mild elevation of both AST and ALT which on repeat are all normal. For now we will just continue to monitor. (5) Atrial thrombus: Code(s): I51.3 - Intracardiac thrombosis, not elsewhere classified Status: Acute Assessment and Plan: as above warfarin started d# 2 (6) Cardiomyopathy: Code(s): I42.9 - Cardiomyopathy, unspecified Status: Acute Assessment and Plan: EF 25-30% thought rate induced. continure beta carolyn and low dose tami added Subjective Date/time seen: 01/14/20 10:21 Interval history: Date of visit 01/13. 69-year-old female with with paroxysmal atrial fibrillation admitted with shortness of breath weakness and found to have persistent AFib RVR. Did have some paresthesias in her left arm which has resolved. Was on a diltiazem drip initially to control rate and now beta-carolyn TTE 01/11 atrial thrombus so no cardioversion and flecainide d/soledad Exam Narrative: Exam Narrative: Blood pressure 110/72 pulse 80 irregular afebrile Pupil equal reactive to light sclera anicteric Lungs clear CV irregular no murmurs Abdomen is soft nontender no masses Extremities without edema distal pulses are 2+ Neuro alert pleasant cooperative no focal deficit Objective Data Vital Signs Vital Signs: Vital Signs - 24 hr 01/13/20 12:00 01/13/20 16:00 01/13/20 17:45 Temperature 35.7 C L Pulse Rate 91 77 106 H Respiratory Rate 13 Blood Pressure 112/90 Pulse Oximetry 98 01/13/20 19:15 01/13/20 20:00 01/13/20 22:26 Temperature 36.6 C Pulse Rate 118 H 138 H 120 H Respiratory Rate 20 Blood Pressure 126/99 H Pulse Oximetry 97 01/14/20 00:00 01/14/20 02:15 01/14/20 04:00 Temperature 36.6 C 36.6 C Pulse Rate 97 73 Respiratory Rate 20 20 Blood Pressure 92/68 L 98/60 L 98/55 L Pulse Oximetry 98 97 01/14/20 08:18 01/14/20 08:20 01/14/20 08:21 Temperature Pulse Rate 80 80 80 Respiratory Rate Blood Pressure 108/73 Pulse Oximetry 100 Intake/Output Intake/Output: Intake & Output 01/11/20 01/12/20 01/13/20 01/14/20 23:59 23:59 23:59 23:59 Intake Total 2300 1000 1200 190 Balance 2300 1000 1200 190 Meds/Results Medications: Active Medications Generic Name Dose Route Start Last Admin Trade Name Faustino PRN Reason Stop Dose Admin Acetaminophen 650 mg 01/10/20 18:02 01/12/20 20:40 Tylenol Tablet PO 650 mg Q4H PRN Administration Headache Digoxin 250 mcg 01/14/20 09:00 01/14/20 08:21 Lanoxin Tab PO 250 mcg QAM LUCINDA Administration Levothyroxine Sodium 50 mcg 01/12/20 06:30 01/14/20 06:17 Synthroid PO 50 mcg DAILY@0630 LUCINDA Administration Lisinopril 5 mg 01/12/20 11:20 01/14/20 08:20 Prinivil PO 5 mg QAM LUCINDA Administration Metoprolol Succinate 100 mg 01/13/20
--- NOTE | 2020-01-14 10:29 | PM.IMPN ---
Progress Note: A&P Assessment and Plan (1) Atrial fibrillation with rapid ventricular response: Code(s): I48.91 - Unspecified atrial fibrillation Status: Acute Assessment and Plan: rate is controlled with the metoprolol , flecainide d/soledad with thrombus and low EF Chads Vasc score is 2 (maybe higher than that, as there is some concern that she may have pre diabetes). Dr. Gomez seeing patient , and started xarelto and now transitioning to warfarin with thrombus and fact insurance does not cover xarelto possible cardiovert 4-6 weeks after anticoagulation (2) Left arm pain: Code(s): M79.602 - Pain in left arm Status: Acute Assessment and Plan: CT scan was negative. MRI of the brain no acute changes. probable related to RVR carotid doppler negative but thrombus on echo (3) Hypothyroid: Code(s): E03.9 - Hypothyroidism, unspecified Status: Acute Assessment and Plan: Continue levothyroxine. TSH today was within normal limits. (4) Elevated LFTs: Code(s): R94.5 - Abnormal results of liver function studies Status: Acute Assessment and Plan: Mild elevation of both AST and ALT which on repeat are all normal. For now we will just continue to monitor. (5) Atrial thrombus: Code(s): I51.3 - Intracardiac thrombosis, not elsewhere classified Status: Acute Assessment and Plan: as above warfarin started d# 3 INR today pending (6) Cardiomyopathy: Code(s): I42.9 - Cardiomyopathy, unspecified Status: Acute Assessment and Plan: EF 25-30% thought rate induced. continure beta carolyn and low dose tami added Subjective Date/time seen: 01/14/20 10:29 Interval history: Date of visit 01/13. 69-year-old female with paroxysmal atrial fibrillation admitted with shortness of breath and weakness and found to have persistent AFib RVR. Left arm paresthesias which resolved. Diltiazem drip initially to control rate now beta-carolyn. ISREAL 01/11 revealed atrial thrombus so no electrical cardioversion and flecainide was discontinued Exam Narrative: Exam Narrative: Blood pressure 110/70 pulse is 80 irregular afebrile Pupils equal reactive to light sclera anicteric Lungs clear CV irregular no murmurs Abdomen soft nontender no masses Extremities without edema good distal pulses Neuro alert pleasant cooperative no focal deficits Objective Data Vital Signs Vital Signs: Vital Signs - 24 hr 01/13/20 12:00 01/13/20 16:00 01/13/20 17:45 Temperature 35.7 C L Pulse Rate 91 77 106 H Respiratory Rate 13 Blood Pressure 112/90 Pulse Oximetry 98 01/13/20 19:15 01/13/20 20:00 01/13/20 22:26 Temperature 36.6 C Pulse Rate 118 H 138 H 120 H Respiratory Rate 20 Blood Pressure 126/99 H Pulse Oximetry 97 01/14/20 00:00 01/14/20 02:15 01/14/20 04:00 Temperature 36.6 C 36.6 C Pulse Rate 97 73 Respiratory Rate 20 20 Blood Pressure 92/68 L 98/60 L 98/55 L Pulse Oximetry 98 97 01/14/20 08:00 01/14/20 08:18 01/14/20 08:20 Temperature Pulse Rate 77 80 80 Respiratory Rate Blood Pressure 108/73 Pulse Oximetry 100 01/14/20 08:21 Temperature Pulse Rate 80 Respiratory Rate Blood Pressure Pulse Oximetry Intake/Output Intake/Output: Intake & Output 01/11/20 01/12/20 01/13/20 01/14/20 23:59 23:59 23:59 23:59 Intake Total 2300 1000 1200 190 Balance 2300 1000 1200 190 Meds/Results Medications: Active Medications Generic Name Dose Route Start Last Admin Trade Name Freq PRN Reason Stop Dose Admin Acetaminophen 650 mg 01/10/20 18:02 01/12/20 20:40 Tylenol Tablet PO 650 mg Q4H PRN Administration Headache Digoxin 250 mcg 01/14/20 09:00 01/14/20 08:21 Lanoxin Tab PO 250 mcg QAM LUCINDA Administration Levothyroxine Sodium 50 mcg 01/12/20 06:30 01/14/20 06:17 Synthroid PO 50 mcg DAILY@0630 LUCINDA Administration
[2020-01-14 11:04] LABS: INR 1.7; Prothrombin Time 19.5 Seconds (11.1-14.7)
--- NOTE | 2020-01-14 13:04 | PM.PNCARD ---
Progress Note: A&P Assessment and Plan (1) Paroxysmal atrial fibrillation: Code(s): I48.0 - Paroxysmal atrial fibrillation Status: Acute Assessment and Plan: Known paroxysmal AFib, but now with persistent AFib RVR. Thrombus present in the left atrial appendage on ISREAL 01/12/2020. Flecainide discontinued. Metoprolol succinate increased 100 mg daily. Digoxin added yesterday, so far 0.5 mg +0.25 mg p.o. with improvement of heart rate but will discharge on 0.125 mg daily. Warfarin started as she does not have medication coverage. Will continue Xarelto for few more days as she is not therapeutic yet. Plan discussed extensively with patient and her daughter. She and her mother are both aware of the recommendations for close monitoring while her warfarin is being adjusted. 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 Has an appointment for an EKG and office follow-up in discharge orders. No work for 2 weeks. Otherwise okay to resume her normal activity. I provided them information about atrial fibrillation, anticoagulation, and INR follow-up in [place] and provided a sample bottle of Xarelto 20 mg daily 7 Tablets, with instructions to take on Thursday and Thursday only (unless otherwise instructed by [facility]). PT INR and digoxin level on ThursdayJanuary 16. (2) Left arm pain: Code(s): M79.602 - Pain in left arm Status: Acute Assessment and Plan: Most of this sounds like arthritis; can not exclude an ischemic component Lexiscan in November was normal. CT scan was negative Essentially resolved. (3) Hypothyroid: Code(s): E03.9 - Hypothyroidism, unspecified Status: Acute Assessment and Plan: Taking levothyroxine, TSH was normal this admission (4) Systolic dysfunction: Code(s): I51.9 - Heart disease, unspecified Status: Acute Assessment and Plan: Severe global left ventricular dysfunction noted on ISREAL. EF 20-25%. November echocardiogram EF was 60%. Most likely this is due to her atrial fibrillation. Continue lisinopril 5 mg daily as blood pressure tolerates. Continue Metoprolol succinate 100 mg daily. Likely will improve. (5) Bradycardia: Code(s): R00.1 - Bradycardia, unspecified Status: Acute Assessment and Plan: Has had some brief pauses, less than 3 seconds, but none noted in the last 24 hours. Subjective Date/time seen: 01/14/20 13:04 Interval history: Follow-up for: Paroxysmal atrial fibrillation, left arm pain and hypothyroidism, left atrial appendage thrombus on ISREAL 01/12/2020, cardiomyopathy, EF 20-25% Visit 01/13/2020: Sitting on side of bed. Family at bedside. Denied chest discomfort, shortness of breath, lightheadedness or palpitations. Still has some discomfort in the left side. Tender on palpation. Date of service 01/14/2020: Last night the patient's heart rate was fast even at rest, 120s, up to 150s with activity. Was given an extra dose of IV and p.o. metoprolol and start on digoxin, 0.5 mg last night and 0.25 mg today. Telemetry shows heart rate is usually 80s-110. No pauses. Patient is feeling well, ambulating in room and halls, denies shortness of breath, dizziness, chest pain, edema. Would like to go home. Would like to go back to [facility]; she has a customer operations associate there but cannot recall the doctor's name. Review of Systems Constitutional: Constitutional: Denies weakness ENT: Denies epistaxis and Denies nasal congestion Cardiovascular: Cardiovascular: Denies chest pain, Denies pedal edema, Denies leg edema, Denies lightheadedness and Denies palpitations Respiratory: Respiratory: Denies chest congestion, Denies dyspnea and Denies dyspnea on exertion Gastrointestinal: Gastrointestinal: Reports abdominal pain (Constipation)
[2020-01-14] MEDS: MAGNESIUM HYDROXIDE SUSP 30 ML UDC PO (14:48)
--- NOTE | 2020-01-14 15:44 | PM.DS ---
DS: Diagnosis Admitting Diagnosis Admitting Diagnosis: Unspecified atrial fibrillation Discharge Diagnosis (1) Atrial fibrillation with rapid ventricular response: Code(s): I48.91 - Unspecified atrial fibrillation Status: Acute Assessment and Plan: rate is controlled with the metoprolol and lanoxin , flecainide d/soledad with thrombus and low EF Chads Vasc score is 2 (maybe higher than that, as there is some concern that she may have pre diabetes). Dr. Gomez seeing patient , and started xarelto and now transitioning to warfarin with thrombus and fact insurance does not cover xarelto INR /. xarelto 02/14 and 02/15 with warfarin then d/c. INR 1.7 today with 3rd dose due possible cardiovert 4-6 weeks after anticoagulation (2) Left arm pain: Code(s): M79.602 - Pain in left arm Status: Acute Assessment and Plan: CT scan was negative. MRI of the brain no acute changes. probable related to RVR carotid doppler negative but thrombus on echo (3) Hypothyroid: Code(s): E03.9 - Hypothyroidism, unspecified Status: Acute Assessment and Plan: Continue levothyroxine. TSH today was within normal limits. (4) Elevated LFTs: Code(s): R94.5 - Abnormal results of liver function studies Status: Acute Assessment and Plan: Mild elevation of both AST and ALT which on repeat are all normal. For now we will just continue to monitor. (5) Atrial thrombus: Code(s): I51.3 - Intracardiac thrombosis, not elsewhere classified Status: Acute Assessment and Plan: as above warfarin started d# 3 INR today 1.7, as above home with xarelto for 2 days and continued warfarin 5mg qd (6) Cardiomyopathy: Code(s): I42.9 - Cardiomyopathy, unspecified Status: Acute Assessment and Plan: EF 25-30% thought rate induced. continure beta carolyn and low dose sharad added DS: Summary Hospital Course Hospital Course: 69-year-old hypertensive white female with history of paroxysmal AFib admitted with shortness or breath AFib RVR. Found to have cardiomyopathy at the time of the cardiac evaluation ejection fraction 20-25%. Continue the metoprolol XL and added low-dose SHARAD-inhibitor Had some paresthesias of her left arm initially but carotid Doppler is negative and MRI of the brain showed no acute strokes. Blood sugar slightly elevated but A1c was 6.0 remained in atrial fibrillation with controlled ventricular response and Lanoxin diltiazem Discharge home on warfarin 5 daily with metoprolol XL 100 daily and Lanoxin 0.125 daily. Entire process took about 45 minutes to complete Time Spent with Patient Time attestation: Total time spent providing and/or coordinating discharge services: 35 minutes Exam Narrative: Exam Narrative: Condition on discharge Blood pressure 110/72 pulse is 80 afebrile Lungs clear CV regular rate murmurs Extremities without edema distal pulses 1 to 2+ Neuro alert pleasant cooperative focal deficits DS: Data Data Completed and Pending Labs on day of discharge: Labs from last 24 hours 01/14/20 01/14/20 01/14/20 10:39 08:30 05:18 WBC 8.3 RBC 5.31 Hgb 15.1 H Hct 45.9 MCV 86.4 MCH 28.4 MCHC 32.9 RDW 13.3 Plt Count 225 MPV 9.4 Immature Gran % (Auto) 0.4 Neut % (Auto) 49.5 Lymph % (Auto) 36.5 Titus % (Auto) 10.8 H Eos % (Auto) 2.6 Baso % (Auto) 0.2 Lymph # (Auto) 3.04 Titus # (Auto) 0.9 H Eos # (Auto) 0.2 Baso # (Auto) 0.0 Abs Immat Gran (auto) 0.03 Absolute Neuts (auto) 4.1 Absolute Nucleated RBC 0.0 Nucleated RBC % 0.0 PT 19.5 H INR 1.7 Sodium 137 Potassium 4.4 Chloride 104 Carbon Dioxide 25 BUN 24 H D Creatinine 0.60 L Estim Creat Clear Calc 84 Estimated GFR > 60 Glucose 118 H Calcium 8.5 Discharge Plan Discharge Attending physician on discharge: Simon [place] [facility]
[2020-01-14] MEDS: RIVAROXABAN 20 MG TABLET PO (17:14)
[2020-01-14] MEDS: WARFARIN (*PBKC) 5 MG TABLET PO (17:15)
== END 2020-01-14 18:05 | disposition home or self-care (01) | DRG 309 ==
LOC: ANHED 09:58 → ANHIMU 12:52 → ANH2MED 01-13 18:43 → ANHIMU 01-18 10:13
PROVIDERS: Internal Medicine Cardiovascular Disease; Nurse Practitioner Adult Health; Physician Assistant; Admitting Provider Family Medicine; Emergency Provider Emergency Medicine; Visit Provider Internal Medicine
PROC: B24BZZ4 Ultrasonography of Heart with Aorta, Transesophageal (ICD-10-PCS; CPT 93312; 2020-01-12 09:30)
DX: I48.91 Unspecified atrial fibrillation (principal); I50.20 Unspecified systolic (congestive) heart failure; E03.9 Hypothyroidism, unspecified; I42.9 Cardiomyopathy, unspecified; R20.2 Paresthesia of skin; I51.3 Intracardiac thrombosis, not elsewhere classified
CPT/HCPCS: 36415; 70450; 70551; 71045; 80048; 80053; 83036; 83735; 84443; 84484; 85025; 85610; 85730; 93005; 93312; 93320; 93325; 93880; 96365; 96366; 96372; 99285; A9270; J1650; J2250; J3010; J7030; J7040

== ENCOUNTER 2020-01-17 11:57 | Outpatient (CLI) | payer MEDICARE, MEDICAID, SELFPAY ==
[2020-01-17 12:27] LABS: INR 2.5; Prothrombin Time 26.6 Seconds (11.1-14.7)
[2020-01-17 12:28] LABS: Blood Urea Nitrogen 20 mg/dL (7-17); Calcium 8.9 mg/dL (8.4-10.2); Carbon Dioxide 31 mmol/L (22-30); Chloride 103 mmol/L (98-107); Estimated Glomerular Filt Rate > 60; Glucose 160 mg/dL (65-105); Potassium 4.5 mmol/L (3.4-5.0); Sodium 138 mmol/L (137-145)
== END 2020-01-17 11:58 | disposition home or self-care (01) ==
PROVIDERS: Internal Medicine; Visit Provider Internal Medicine Cardiovascular Disease
DX: I48.0 Paroxysmal atrial fibrillation (principal); I42.9 Cardiomyopathy, unspecified; I48.91 Unspecified atrial fibrillation; I51.3 Intracardiac thrombosis, not elsewhere classified
CPT/HCPCS: 36415; 80048; 80162; 85610